=== PATIENT | female | born 1970 | race Hispanic/Latino ===

== ENCOUNTER 2018-06-30 20:53 | Emergency (ER) | payer BC, OTHER ==
[2018-06-30] MEDS ORDERED: KETOROLAC TROMETHAMINE 60 MG/2 ML VIAL ONE (22:29)
[2018-06-30] MEDS ORDERED: CEFTRIAXONE SODIUM 1 GM ONE (22:29)
[2018-06-30] MEDS ORDERED: LIDOCAINE HCL-MPF 1% 2ML VIAL ONE (22:29)
== END 2018-06-30 22:44 | disposition home or self-care (01) ==
LOC: EDH 20:53
DX: K02.9 Dental caries, unspecified (principal); L03.211 Cellulitis of face
CPT/HCPCS: 96372 ×2; 99283; J0696; J1885; J3490